=== PATIENT | female | born 1965 | race Caucasian/White ===

== ENCOUNTER 2016-05-05 21:33 | Emergency (ER) | payer BC ==
[~2016-05-05 21:33] MED LIST: ADVIL200 MG PO; ESTRACE0.5 MG PO; PERCOCET 325 MG1 TA2 PO
[2016-05-05 21:41] VITALS: TEMP 98.1
[2016-05-05 23:04] LABS: BASO % 0.5 % (0.0-2.0); EOS # 0.1 (0.0-0.7); EOS % 1.8 % (0-4.0); GRAN # 3.3 (1.4-6.5); GRAN % 57.4 % (42.2-75.2); HEMATOCRIT 37.1 % (37.0-47.0); LYMPH # 1.9 (1.2-3.4); LYMPH % 33.9 % (20.0-51.0); MEAN CELL VOLUME 85 fl (80.0-100.0); MEAN CORPUSCULAR HEMOGLOBIN 27 pg (27.0-31.0); MEAN CORPUSCULAR HGB CONC 32 g/dl (33.0-37.0); MEAN PLATELET VOLUME 12.2 fl (7.4-10.4); MONO # 0.4 (0.1-0.6); MONO % 6.2 % (1.7-9.3); PLATELET COUNT 216 K/mm3 (130-400); RED BLOOD COUNT 4.37 M/mm3 (4.10-5.30); REDCELL DISTRIBUTION WIDTH-CV 14.8 % (11.5-14.5); WHITE BLOOD COUNT 5.7 K/mm3 (4.8-10.8)
[2016-05-05 23:07] LABS: HEMOGLOBIN 11.9 g/dl (12.5-16.0)
[2016-05-05 23:18] LABS: ADJUSTED CALCIUM 9.1 mg/dL (8.4-10.2); ALANINE AMINOTRANSFERASE 32 U/L (9-52); ALBUMIN 4.4 gm/dL (3.5-5.0); ALKALINE PHOSPHATASE 88 U/L (50-136); ANION GAP 13 mmol/L (7-16); BILIRUBIN,TOTAL 0.6 mg/dL (0.0-1.0); BLOOD UREA NITROGEN 18 mg/dL (7-17); CALCIUM 9.4 mg/dL (8.4-10.2); CARBON DIOXIDE 28 mmol/L (22-30); CHLORIDE 100 mmol/L (98-107); CREATININE, serum 0.67 mg/dL (0.52-1.25); GLUCOSE 137 mg/dL (74-106); LIPASE 93 U/L (23-300); POTASSIUM 3.7 mmol/L (3.4-5.0); SODIUM 140 mmol/L (137-145); TOTAL PROTEIN 7.7 gm/dL (6.4-8.2)
[2016-05-05 23:22] LABS: C-REACTIVE PROTEIN < 0.5 mg/dL (0.0-0.9)
[2016-05-05 23:23] LABS: PH 5 (5-8); SQUAMOUS EPITHELIAL 0-2 /hpf; URINE APPEARANCE Clear; URINE BACTERIA None Seen /hpf; URINE BILIRUBIN Negative (NEGATIVE); URINE BLOOD 2+ (NEGATIVE); URINE COLOR Yellow; URINE GLUCOSE Negative (NEGATIVE); URINE KETONE Trace (NEGATIVE); URINE RBC 0-2 /hpf; URINE UROBILINOGEN Negative (NEGATIVE); URINE WBC 0-2 /hpf
[2016-05-05 23:27] LABS: TROPONIN-I < 0.012 ng/mL (0.000-0.034)
[2016-05-06 00:48] VITALS: BP 100/51; PULSE 76
== END 2016-05-06 00:51 | disposition home or self-care (01) ==
LOC: COL.ER 21:33
PROVIDERS: Emergency Medicine
DX: R55 Syncope and collapse (principal); R10.84 Generalized abdominal pain; F17.210 Nicotine dependence, cigarettes, uncomplicated
CPT/HCPCS: J2405; J7030

== ENCOUNTER → 2016-05-13 | Outpatient (CLI) | payer BC | LOC: COL.VAS 09:36 | DX: I34.0 Nonrheumatic mitral (valve) insufficiency (principal); R55 Syncope and collapse ==

== ENCOUNTER → 2017-08-06 | Outpatient (CLI) | payer BC | LOC: MC.RAD 07-27 10:20 | DX: Z12.31 Encounter for screening mammogram for malignant neoplasm of breast (principal) ==

== ENCOUNTER → 2021-01-22 | Outpatient (CLI) | payer BC | LOC: MC.RAD 08:11 | DX: Z12.31 Encounter for screening mammogram for malignant neoplasm of breast (principal) ==

== ENCOUNTER → 2023-02-03 | Outpatient (CLI) | payer BC | LOC: MC.RAD 11:05 | DX: Z12.31 Encounter for screening mammogram for malignant neoplasm of breast (principal) ==